=== PATIENT | female | born 1965 | race Caucasian/White ===

== ENCOUNTER 2018-11-17 16:57 | Emergency (ER) | payer SELFPAY ==
[~2018-11-17] VITALS: Ht 165.1 cm; Wt 74.4 kg
[2018-11-17 17:04] VITALS: Ht 165.1 cm; Wt 74.4 kg
[2018-11-17 19:42] VITALS: BP 138/93
== END 2018-11-17 19:42 | disposition home or self-care (01) ==
LOC: ED 16:57
DX: S00.03XA Contusion of scalp, initial encounter (principal); S09.8XXA Other specified injuries of head, initial encounter; Z88.6 Allergy status to analgesic agent; W21.03XA Struck by baseball, initial encounter; Y93.64 Activity, baseball; Y92.320 Baseball field as the place of occurrence of the external cause; Y99.8 Other external cause status